=== PATIENT | male | born 1980 | race Caucasian/White ===

== ENCOUNTER 2020-02-11 18:40 | Outpatient (CLI) | payer BC | END 2020-02-11 18:41 | disposition EMS.NT | LOC: EMS 18:40 | PROVIDERS: ATTEND Surgery | DX: R55 Syncope and collapse (principal) ==

== ENCOUNTER 2020-02-11 19:42 | Emergency (ER) | payer BC ==
--- NOTE | 2020-02-11 20:33 | XRAY Report ---
PROCEDURE: Chest 1 View X-Ray INDICATIONS: Chest Pain TECHNIQUE: One view of the chest was acquired. COMPARISON: None. FINDINGS: Surgical changes and devices: None. Lungs and pleura: No pleural effusions or pneumothorax. Lungs are clear. Mediastinum: Mediastinal contours appear normal. Heart size is normal. Bones and chest wall: No suspicious bony lesions. Overlying soft tissues appear unremarkable. IMPRESSION: No acute cardiopulmonary abnormality. Reviewed by: Guzman Steward MD on 02/11/2020 8:32 PM [facility] Approved by: Guzman Steward MD on 02/11/2020 8:32 PM [facility] Station ID: [id number]
[2020-02-11 21:17] LABS: BASOPHILS % (AUTO) 0.2 %; EOSINOPHILS # (AUTO) 0.1 10^3/uL (0.0-0.7); HGB - HEMOGLOBIN 14.7 g/dL (14.0-18.0); LYMPHOCYTES # (AUTO) 1.9 10^3/uL (1.5-3.5); LYMPHOCYTES % (AUTO) 18.3 %; MEAN CORPUSCULAR HEMOGLOBIN 32.4 pg (27.0-31.0); MEAN CORPUSCULAR HGB CONC 34.3 g/dL (32.0-36.0); MEAN CORPUSCULAR VOLUME 94.3 fL (80.0-94.0); MEAN PLATELET VOLUME 9.4 fL (7.4-11.4); MONOCYTES # (AUTO) 0.5 10^3/uL (0.0-1.0); MONOCYTES % (AUTO) 5.3 %; NEUTROPHILS # (AUTO) 7.6 10^3/uL (1.5-6.6); NEUTROPHILS % (AUTO) 74.7 %; PLT - PLATELET COUNT 295 10^3/uL (130-450); RED BLOOD COUNT 4.54 10^6/uL (4.70-6.10); RED CELL DISTRIBUTION WIDTH 12.8 % (12.0-15.0); WHITE BLOOD COUNT 10.2 x10^3/uL (4.8-10.8)
[2020-02-11 21:22] LABS: ALBUMIN 4.6 g/dL (3.2-5.5); ALBUMIN/GLOBULIN RATIO 1.5 (1.0-2.2); BILIRUBIN,TOTAL 0.6 mg/dL (0.2-1.0); CALCIUM 9.3 mg/dL (8.5-10.3); TOTAL PROTEIN 7.7 g/dL (6.7-8.2)
--- NOTE | 2020-02-11 21:28 | ED Physician Documentation ---
PD HPI CHEST PAIN - Stated complaint Stated Complaint: CHEST PAIN - Chief complaint Chief Complaint: Cardiac - History obtained from History obtained from: Patient, Family - History of Present Illness Timing - onset: Today Timing - onset during: Rest Timing - duration: Minutes (3) Timing - details: Abrupt onset Pain level max: 4 Pain level now: 0 Quality: Pressure Location: Substernal, Epigastric Radiation: No: Jaw, Neck, Back, Abdominal, Left upper extremity, Right upper extremity Improved by: Nothing Worsened by: Other (nothing) Associated symptoms: Nausea, Feeling faint / dizzy. No: Shortness of air, Diaphoresis, Vomiting, General Weakness, Palpitations, Cough Similar symptoms before: Has not had sx before Recently seen: Not recently seen - Additional information Additional information: 39-year-old male with chest pain today. He states that it started after hearing about an ill family member. Lasted approximately 3 to 5 minutes. Has not recurred since that time this was about 2 hours prior to arrival. No cardiac hi story. No medications at home. Review of Systems Ten Systems: 10 systems reviewed and negative Constitutional: denies: Fever, Chills Ears: denies: Ear pain Nose: denies: Rhinorrhea / runny nose, Congestion Throat: denies: Sore throat Cardiac: denies: Palpitations, Calf pain Respiratory: denies: Dyspnea, Cough, Wheezing GI: denies: Abdominal Pain, Vomiting, Diarrhea, Hematemesis, Bloody / black stool : denies: Dysuria Skin: denies: Rash Musculoskeletal: denies: Neck pain, Back pain Neurologic: denies: Headache PD PAST MEDICAL HISTORY - Past Medical History Past Medical History: No - Past Surgical History Past Surgical History: Yes General: Appendectomy - Present Medications Home Medications: Ambulatory Orders Medication Instructions Recorded Confirmed No Known Home Medications 02/11/20 02/11/20 - Allergies Allergies/Adverse Reactions: Allergies Allergy/AdvReac Type Severity Reaction Status Date / Time No Known Drug Allergies Allergy Verified 02/11/20 19:53 - Social History Does the pt smoke?: Yes Smoking Status: Current every day smoker Does the pt drink ETOH?: Yes ETOH Use: Beer Does the pt have substance abuse?: Yes Substance Use and Type: Marijuana - Immunizations Immunizations are current?: Yes - POLST Patient has POLST: No PD ED PE NORMAL - Vitals Vital signs reviewed: Yes - General General: Alert and oriented X 3, No acute distress - HEENT HEENT: PERRL, Moist mucous membranes - Neck Neck: Supple, no meningeal sign, No JVD, No bruit - Cardiac Cardiac: RRR, No murmur, Strong equal pulses - Respiratory Respiratory: No respiratory distress, Clear bilaterally - Abdomen Abdomen: Soft, Non tender, Non distended - Derm Derm: Warm and dry, No rash - Extremities Extremities: No edema, No calf tenderness / cord - Neuro Neuro: Alert and oriented X 3 - Psych Psych: Normal mood, Normal affect Results - Vitals Vitals: Vital Signs - 24 hr 02/11/20 02/11/20 02/11/20 19:51 20:47 21:48 Temperature 36.8 C 36.8 C 36.8 C Heart Rate 79 80 71 Respiratory 16 22 18 Rate Blood Pressure 135/80 H 130/89 H 119/81 H O2 Saturation 96 97 100 02/11/20 23:14 Temperature 36.8 C Heart Rate 71 Respiratory 18 Rate Blood Pressure 112/80 O2 Saturation 100 Oxygen O2 Source Room air - EKG (time done) 1949 Rate: Rate (enter#) (81) Rhythm: NSR [place]: Normal Intervals: Normal [place] QRS: Normal Ischemia: Normal ST segments - Labs Labs: Laboratory Tests 02/11/20 02/11/20 02/11/20 21:01 21:01 21:01 WBC 10.2 RBC 4.54 L Hgb 14.7 Hct 42.8 MCV 94.3 H MCH 32.4 H MCHC 34.3 RDW 12.8 Plt Count 295 MPV 9.4 Neut # (Auto) 7.6 H Lymph # (Auto) 1.9 Fleming # (Auto) 0.5 Eos # (Auto) 0.1 Baso # (Auto) 0.0 Absolute Nucleated RBC 0.00 Nucleated RBC % 0.0 Sodium 136 Potassium 3.6 Chloride 101 Carbon Dioxide 24 Anion Gap 11.0 BUN 16 Creatinine 1.0 Estimated GFR (MDRD) 82 L Glucose 103 H Calcium 9.3 Total Bilirubin 0.6 AST 26 ALT 33 Alkaline Phosphatase 67 Troponin I High Sens 3.4 Total Protein 7.7 Albumin 4.6 Globulin 3.1 Albumin/Globulin Ratio 1.5 Lipase 32 02/11/20 22:37 WBC RBC Hgb Hct MCV MCH MCHC RDW Plt Count MPV Neut # (Auto) Lymph # (Auto) Fleming # (Auto) Eos # (Auto) Baso # (Auto) Absolute Nucleated RBC Nucleated RBC % Sodium Potassium Chloride Carbon Dioxide Anion Gap BUN Creatinine Estimated GFR (MDRD) Glucose Calcium Total Bilirubin AST ALT Alkaline Phosphatase Troponin I High Sens 2.6 Total Protein Albumin Globulin Albumin/Globulin Ratio Lipase - Rads (name of study) cxr Radiology: Prelim report reviewed, EMP read contemporaneously, See rad report (normal) PD MEDICAL DECISION MAKING - ED course Complexity details: reviewed results, re-evaluated patient, considered differential (No ST elevation [place], no aortic dissection, no PE, no tension pneumothorax, no aortic aneurysm), d/w patient ED course: 39-year-old male with atypical chest pain today. Unclear etiology. Negative high-sensitivity troponin x2. Normal EKG. Normal chest x-ray. Normal blood work. We will have him follow-up with his doctor for further care and cardiac stress test. Patient counseled regarding signs and symptoms for which I believe and urgent re-evaluation would be necessary. Patient with good understanding of and agreement to plan and is comfortable going home at this time This document was made in part using voice recognition software. While efforts are made to proofread this document, sound alike and grammatical errors may occur. Departure - Departure Disposition: 01 Home, Self Care Condition: Good Instructions: ED Chest Pain Atypical Unkn Cause Follow-Up: your,doctor in 1 week [Other] [facility] [Provider Group] [facility] [place] [[place] Group] Comments: Your heart test did not show any acute abnormalities today. Follow-up with your doctor for further care. You should have a cardiac stress test performed. Return if you worsen. The cause of your symptoms is unclear today Discharge Date/Time: 02/11/20 23:13
[2020-02-11 23:15] VITALS: BP 112/80
== END 2020-02-11 23:13 | disposition home or self-care (01) ==
LOC: ED 19:42
DX: R07.89 Other chest pain (principal); F17.200 Nicotine dependence, unspecified, uncomplicated
CPT/HCPCS: 36415; 71045; 80053; 83690; 84484; 85025; 93005; 99284